=== PATIENT | male | born 1935 | race Caucasian/White ===

== ENCOUNTER 2017-07-02 09:50 | Inpatient (IN) | payer MEDICARE, MEDICAID ==
[~2017-07-02] VITALS: Ht 165.1 cm; Wt 68.1 kg
[2017-07-02] MEDS ORDERED: SODIUM CHLORIDE 0.9% 1,000 ML IV ONE (10:08)
[2017-07-02 10:42] LABS: BASOPHILS % 0.6 % (0.0-2.0); EOSINOPHILS % 0.7 % (0.0-5.0); HEMATOCRIT. 42.9 % (42.0-52.0); HEMOGLOBIN. 14.3 g/dL (14.0-18.0); LYMPHOCYTES % 28.7 % (20.0-50.0); MEAN CORPUSCULAR HEMOGLOBIN 31.1 pg (28.0-32.0); MEAN PLATELET VOLUME 9.4 fl (7.4-10.4); MONOCYTES % 12.3 % (2.0-8.0); NEUTROPHILS % 57.7 % (40.0-76.0); PLATELET 161 x1000/uL (130-400); RED BLOOD CELL COUNT 4.61 mill/uL (4.7-6.1); RED CELL DISTRIBUTION WIDTH 13.4 % (11.6-14.6)
[2017-07-02 10:51] LABS: PROTHROMBIN TIME 10.6 sec (9.4-11.6)
[2017-07-02] MEDS ORDERED: SODIUM CHLORIDE 0.9% 1,000 ML IV SCH (10:53)
[2017-07-02 10:56] LABS: CARBON DIOXIDE 32 mEq/L (21-32); CHLORIDE 102 mEq/L (98-107)
[2017-07-02 11:00] LABS: TROPONIN I < 0.02 ng/mL (0.00-0.04)
[2017-07-02 11:01] LABS: AMMONIA 14 uMol/L (<32)
[2017-07-02 11:33] LABS: CLARITY URINE CLEAR (CLEAR); COLOR URINE YELLOW (YELLOW); GLUCOSE URINE NEGATIVE (NEGATIVE); KETONES URINE NEGATIVE (NEGATIVE); LEUKOCYTE ESTERASE URINE NEGATIVE (NEGATIVE); NITRITE URINE NEGATIVE (NEGATIVE); OCCULT BLOOD URINE NEGATIVE (NEGATIVE); PH URINE 8.5 (4.5-8.0); PROTEIN URINE NEGATIVE (NEGATIVE); SPECIFIC GRAVITY URINE 1.016 (1.005-1.030); UROBILINOGEN URINE 0.2 E.U./dL (0.2-1.0)
[2017-07-02] MEDS ORDERED: IPRATROPIUM/ALBUTEROL 0.5-3(2.5)MG/3ML NEB INH PRN (12:15)
[2017-07-02] MEDS ORDERED: CLONIDINE 0.1MG TABLET PO PRN (12:15)
[2017-07-02] MEDS ORDERED: NITROGLYCERIN 0.4MG TABLET SL SL PRN (12:15)
[2017-07-02] MEDS ORDERED: ONDANSETRON HCL 4MG/2ML VIAL IV PRN (12:15)
[2017-07-02] MEDS ORDERED: NA PHOS,M-B/NA PHOS,DI-BA ENEMA 118ML PR PRN (12:15)
[2017-07-02] MEDS ORDERED: ACETAMINOPHEN 325MG TABLET PO PRN (12:15)
[2017-07-02] MEDS ORDERED: DOCUSATE SODIUM 100MG CAPSULE PO PRN (12:15)
[2017-07-02] MEDS ORDERED: GUAIFENESIN 200MG/10ML SUGAR FREE UDC PO PRN (12:15)
[2017-07-02] MEDS ORDERED: MAGNESIUM/ALUMINUM HYDROXIDE/SIMETHICONE 30ML UDC PO PRN (12:15)
[2017-07-02 14:28] LABS: CREATINE KINASE 113 IU/L (39-308); CREATINE KINASE MB FRACTION 2.7 ng/mL (0.5-3.6); TROPONIN I < 0.02 ng/mL (0.00-0.04)
[2017-07-02] MEDS ORDERED: ASPIRIN 300MG SUPP PR SCH (15:30)
[2017-07-02] MEDS: DEXT 5%/0.45% NACL 1000ML 1,000 ML IV SCH (15:56)
[2017-07-02 20:15] VITALS: BP 129/70
[2017-07-02 20:32] VITALS: BP 129/70
[2017-07-02] MEDS: ATORVASTATIN CALCIUM 20MG TABLET PO SCH (21:00)
[2017-07-02] MEDS ORDERED: PRIM250T33 PO (21:50)
[2017-07-02] MEDS: FAMOTIDINE 20MG/2ML VIAL IV SCH (22:01)
[2017-07-02] MEDS: ENOXAPARIN 40MG/0.4ML SYR SUBCUT SCH (22:02)
[2017-07-02 23:39] LABS: CREATINE KINASE 112 IU/L (39-308); CREATINE KINASE MB FRACTION 2.5 ng/mL (0.5-3.6); TROPONIN I < 0.02 ng/mL (0.00-0.04)
[2017-07-03] VITALS (7 sets, daily range): BP systolic 115–146; BP diastolic 72–82
[2017-07-03] MEDS: DEXT 5%/0.45% NACL 1000ML 1,000 ML IV SCH ×4 (01:27→21:06)
[2017-07-03] MEDS: FAMOTIDINE 20MG/2ML VIAL IV SCH ×2 (08:12→21:07)
[2017-07-03] MEDS ORDERED: ASPIRIN 325MG EC TABLET PO SCH (09:00)
[2017-07-03] MEDS: CLOPIDOGREL 75MG TABLET PO SCH (09:00)
[2017-07-03] MEDS: LORAZEPAM 2MG/ML CPJ IV PRN (10:44)
[2017-07-03 13:55] LABS: T4 FREE 1.15 ng/dL (0.76-1.46)
[2017-07-03 14:10] LABS: FOLIC ACID (FOLATE) SERUM 10.1 ng/mL (>5.38)
[2017-07-03] MEDS: ENOXAPARIN 40MG/0.4ML SYR SUBCUT SCH (18:34)
[2017-07-03] MEDS: ATORVASTATIN CALCIUM 20MG TABLET PO SCH (21:07)
[2017-07-03] MEDS: DIPHENHYDRAMINE 50MG/ML VIAL IV PRN (21:12)
[2017-07-04 04:00] VITALS: BP 95/65
[2017-07-04] MEDS: DEXT 5%/0.45% NACL 1000ML 1,000 ML IV SCH ×2 (05:45→17:45)
[2017-07-04 08:00] VITALS: BP 130/71
[2017-07-04] MEDS: CLOPIDOGREL 75MG TABLET PO SCH (09:39)
[2017-07-04] MEDS: FAMOTIDINE 20MG/2ML VIAL IV SCH ×2 (09:44→20:45)
[2017-07-04 12:00] VITALS: BP 123/67
[2017-07-04 16:00] VITALS: BP 114/75
[2017-07-04] MEDS: ENOXAPARIN 40MG/0.4ML SYR SUBCUT SCH (17:45)
[2017-07-04] MEDS: LORAZEPAM 2MG/ML CPJ IV PRN (18:05)
[2017-07-04 20:00] VITALS: BP 125/63
[2017-07-04] MEDS: ATORVASTATIN CALCIUM 20MG TABLET PO SCH (20:45)
[2017-07-04] MEDS: DIPHENHYDRAMINE 50MG/ML VIAL IV PRN (21:03)
[2017-07-05 00:04] VITALS: BP 117/75
[2017-07-05] MEDS: DEXT 5%/0.45% NACL 1000ML 1,000 ML IV SCH ×2 (03:09→17:00)
[2017-07-05 04:00] VITALS: BP 131/67
[2017-07-05 08:00] VITALS: BP 129/81
[2017-07-05] MEDS: CLOPIDOGREL 75MG TABLET PO SCH (09:29)
[2017-07-05] MEDS: FAMOTIDINE 20MG/2ML VIAL IV SCH ×2 (09:51→20:20)
[2017-07-05 12:00] VITALS: BP 116/60
[2017-07-05 16:00] VITALS: BP 125/56
[2017-07-05] MEDS: ENOXAPARIN 40MG/0.4ML SYR SUBCUT SCH (18:10)
[2017-07-05 20:00] VITALS: BP 161/82
[2017-07-05] MEDS: ATORVASTATIN CALCIUM 20MG TABLET PO SCH (20:20)
[2017-07-06] VITALS: BP 118/94
[2017-07-06] MEDS: DIPHENHYDRAMINE 50MG/ML VIAL IV PRN (00:45)
[2017-07-06] MEDS: DEXT 5%/0.45% NACL 1000ML 1,000 ML IV SCH (03:10)
[2017-07-06 04:00] VITALS: BP 136/74
[2017-07-06 08:00] VITALS: BP 126/65
[2017-07-06] MEDS ORDERED: CYANOCOBALAMIN 1000MCG/ML VIAL IM SCH (09:00)
[2017-07-06] MEDS: CLOPIDOGREL 75MG TABLET PO SCH (09:34)
[2017-07-06] MEDS: FAMOTIDINE 20MG/2ML VIAL IV SCH (09:38)
[2017-07-06 12:00] VITALS: BP 129/60
[2017-07-06 13:12] VITALS: BP 129/60
== END 2017-07-06 12:20 | DRG 64 ==
LOC: ER 09:59 → 7WST 10:55 → EDBEDREQTM 10:56 → EDBEDREQ 10:56 → SUPCPDRO 12:05 → ENRESERV 19:03 → EDBEDREQ 20:21
PROVIDERS: ADMIT Internal Medicine; ATTEND Internal Medicine
DX: I63.9 Cerebral infarction, unspecified (principal); G82.50 Quadriplegia, unspecified; G93.40 Encephalopathy, unspecified; G30.9 Alzheimer's disease, unspecified; F02.80 Dementia in other diseases classified elsewhere, unspecified severity, without behavioral disturbance, psychotic disturbance, mood disturbance, and anxiety; E78.00 Pure hypercholesterolemia, unspecified; I10 Essential (primary) hypertension; R13.10 Dysphagia, unspecified; R47.01 Aphasia; R26.9 Unspecified abnormalities of gait and mobility; R53.81 Other malaise
CPT/HCPCS: 36415; 51702; 70450; 70544; 70551; 71010; 80053; 80061; 81003; 82140; 82550; 82553; 82607; 82746; 82962; 83036; 83605; 83690; 83880; 84439; 84443; 84481; 84484; 85025; 85610; 85730; 87040; 87086; 92610; 93005; 93306; 93880; 93970; 97116; 97162; 97167; 99285; A6261; J1200; J1650; J2060; J3420; J3490; J7030; A4315

== ENCOUNTER 2017-07-06 12:50 | Inpatient (IN) | payer MEDICARE, MEDICAID ==
[~2017-07-06] VITALS: Ht 165.1 cm; Wt 64.0 kg
[2017-07-06 12:50] VITALS: BP 133/72
[~2017-07-06 12:50] MED LIST: PRIM250T33 PO
[2017-07-06] MEDS ORDERED: ACETAMINOPHEN 650MG/20.3ML UDC PO PRN (14:15)
[2017-07-06] MEDS ORDERED: IPRATROPIUM/ALBUTEROL 0.5-3(2.5)MG/3ML NEB HHN PRN (14:15)
[2017-07-06] MEDS ORDERED: DOCUSATE SODIUM 100MG CAPSULE PO PRN (14:15)
[2017-07-06] MEDS ORDERED: ONDANSETRON HCL 4MG TABLET PO PRN (14:15)
[2017-07-06] MEDS ORDERED: NA PHOS,M-B/NA PHOS,DI-BA ENEMA 118ML PR PRN (14:15)
[2017-07-06] MEDS ORDERED: GUAIFENESIN 200MG/10ML SUGAR FREE UDC PO PRN (14:15)
[2017-07-06] MEDS ORDERED: CLONIDINE 0.1MG TABLET PO PRN (14:15)
[2017-07-06] MEDS ORDERED: MAGNESIUM/ALUMINUM HYDROXIDE/SIMETHICONE 30ML UDC PO PRN (14:15)
[2017-07-06] MEDS ORDERED: NITROGLYCERIN 0.4MG TABLET SL SL PRN (14:15)
[2017-07-06] MEDS ORDERED: TRAMADOL 50MG TABLET PO PRN (18:45)
[2017-07-06 20:00] VITALS: BP 141/76
[2017-07-06] MEDS: ATORVASTATIN CALCIUM 20MG TABLET PO SCH (20:27)
[2017-07-06] MEDS: FAMOTIDINE 20MG TABLET PO SCH (20:27)
[2017-07-07 06:24] LABS: HEMATOCRIT. 40.9 % (42.0-52.0); HEMOGLOBIN. 13.9 g/dL (14.0-18.0); MEAN CORPUSCULAR HEMOGLOBIN 31.2 pg (28.0-32.0); MEAN PLATELET VOLUME 9.5 fl (7.4-10.4); PLATELET 151 x1000/uL (130-400); RED BLOOD CELL COUNT 4.44 mill/uL (4.7-6.1); RED CELL DISTRIBUTION WIDTH 13.4 % (11.6-14.6)
[2017-07-07 06:29] LABS: CARBON DIOXIDE 27 mEq/L (21-32); CHLORIDE 103 mEq/L (98-107)
[2017-07-07 06:33] LABS: PREALBUMIN 13.5 mg/dL (20.0-40.0)
[2017-07-07 08:00] VITALS: BP 130/77
[2017-07-07] MEDS: CYANOCOBALAMIN 1000MCG/ML VIAL IM SCH (09:40)
[2017-07-07] MEDS: CLOPIDOGREL 75MG TABLET PO SCH (09:40)
[2017-07-07] MEDS: FAMOTIDINE 20MG TABLET PO SCH (09:40)
[2017-07-07] MEDS: ENOXAPARIN 40MG/0.4ML SYR SUBCUT SCH (09:40)
[2017-07-07 13:59] LABS: PLATELET ESTIMATE NORMAL
[2017-07-07 20:00] VITALS: BP 127/81
[2017-07-07] MEDS: ATORVASTATIN CALCIUM 20MG TABLET PO SCH (21:12)
[2017-07-08 08:00] VITALS: BP 113/62
[2017-07-08] MEDS: CLOPIDOGREL 75MG TABLET PO SCH (09:29)
[2017-07-08] MEDS: FAMOTIDINE 20MG TABLET PO SCH (09:29)
[2017-07-08] MEDS: CYANOCOBALAMIN 1000MCG/ML VIAL IM SCH (09:29)
[2017-07-08] MEDS: ENOXAPARIN 40MG/0.4ML SYR SUBCUT SCH (09:30)
[2017-07-08 20:00] VITALS: BP 156/77
[2017-07-08] MEDS: ATORVASTATIN CALCIUM 20MG TABLET PO SCH (20:38)
[2017-07-09 08:00] VITALS: BP 112/48
[2017-07-09] MEDS: CLOPIDOGREL 75MG TABLET PO SCH (10:10)
[2017-07-09] MEDS: CYANOCOBALAMIN 1000MCG/ML VIAL IM SCH (10:10)
[2017-07-09] MEDS: FAMOTIDINE 20MG TABLET PO SCH (10:10)
[2017-07-09] MEDS: ENOXAPARIN 40MG/0.4ML SYR SUBCUT SCH (10:17)
[2017-07-09 20:00] VITALS: BP 112/61
[2017-07-09] MEDS: ATORVASTATIN CALCIUM 20MG TABLET PO SCH (21:52)
[2017-07-10 07:07] LABS: HEMOGLOBIN. 13.9 g/dL (14.0-18.0); MEAN CORPUSCULAR HEMOGLOBIN 31.6 pg (28.0-32.0); MEAN CORPUSCULAR VOLUME 93.1 fL (80.0-94.0); MEAN PLATELET VOLUME 9.2 fl (7.4-10.4); PLATELET 191 x1000/uL (130-400); RED CELL DISTRIBUTION WIDTH 13.1 % (11.6-14.6)
[2017-07-10 07:18] LABS: FERRITIN 474 ng/mL (22-322)
[2017-07-10 07:25] LABS: CARBON DIOXIDE 29 mEq/L (21-32); CHLORIDE 101 mEq/L (98-107); HDL CHOLESTEROL 41 mg/dL (40-59); LDL CHOLESTEROL 94 mg/dL (5-100); PHOSPHORUS 2.8 mg/dL (2.5-4.9); TOTAL IRON BINDING CAPACITY 204 ug/dL (250-450)
[2017-07-10 07:36] LABS: PROSTRATE SPECIFIC AG TOTAL 24.13 ng/mL (0.0-4.0)
[2017-07-10 08:00] VITALS: BP 114/69
[2017-07-10 08:25] LABS: VITAMIN B12 SERUM > 2000.0 pg/mL (211-911)
[2017-07-10] MEDS: CYANOCOBALAMIN 1000MCG/ML VIAL IM SCH (08:52)
[2017-07-10] MEDS: FAMOTIDINE 20MG TABLET PO SCH (08:52)
[2017-07-10] MEDS: CLOPIDOGREL 75MG TABLET PO SCH (08:52)
[2017-07-10] MEDS: ENOXAPARIN 40MG/0.4ML SYR SUBCUT SCH (08:53)
[2017-07-10] MEDS ORDERED: ZOLPIDEM TARTRATE 5MG TABLET PO PRN (18:30)
[2017-07-10 19:19] LABS: CLARITY URINE CLEAR (CLEAR); COLOR URINE YELLOW (YELLOW); GLUCOSE URINE NEGATIVE (NEGATIVE); KETONES URINE NEGATIVE (NEGATIVE); LEUKOCYTE ESTERASE URINE NEGATIVE (NEGATIVE); NITRITE URINE NEGATIVE (NEGATIVE); OCCULT BLOOD URINE TRACE (NEGATIVE); PH URINE 5.5 (4.5-8.0); PROTEIN URINE NEGATIVE (NEGATIVE); SPECIFIC GRAVITY URINE 1.012 (1.005-1.030)
[2017-07-10 20:00] VITALS: BP 129/75
[2017-07-10] MEDS: ATORVASTATIN CALCIUM 20MG TABLET PO SCH (20:47)
[2017-07-10 22:18] LABS: PLATELET ESTIMATE NORMAL
[2017-07-11 08:00] VITALS: BP 120/67
[2017-07-11] MEDS: CYANOCOBALAMIN 1000MCG/ML VIAL IM SCH (08:06)
[2017-07-11] MEDS: FAMOTIDINE 20MG TABLET PO SCH (08:07)
[2017-07-11] MEDS: CLOPIDOGREL 75MG TABLET PO SCH (08:07)
[2017-07-11] MEDS: ENOXAPARIN 40MG/0.4ML SYR SUBCUT SCH (08:08)
[2017-07-11 15:22] VITALS: BP 120/67
[2017-07-13 09:07] LABS: 25-HYDROXY VITAMIN D3 19 ng/mL (.)
== END 2017-07-11 15:47 | disposition home health service (06) | DRG 64 ==
PROVIDERS: ADMIT Physical Medicine & Rehabilitation Spinal Cord Injury Medicine; ATTEND Internal Medicine
DX: I63.9 Cerebral infarction, unspecified (principal); G82.50 Quadriplegia, unspecified; E44.0 Moderate protein-calorie malnutrition; G30.9 Alzheimer's disease, unspecified; F02.80 Dementia in other diseases classified elsewhere, unspecified severity, without behavioral disturbance, psychotic disturbance, mood disturbance, and anxiety; G81.91 Hemiplegia, unspecified affecting right dominant side; R47.01 Aphasia; R13.10 Dysphagia, unspecified; D63.8 Anemia in other chronic diseases classified elsewhere; E78.00 Pure hypercholesterolemia, unspecified; I10 Essential (primary) hypertension; R53.81 Other malaise; R47.1 Dysarthria and anarthria; R26.2 Difficulty in walking, not elsewhere classified; Z68.23 Body mass index [BMI] 23.0-23.9, adult; Z79.02 Long term (current) use of antithrombotics/antiplatelets; Z98.49 Cataract extraction status, unspecified eye; Z79.899 Other long term (current) drug therapy
CPT/HCPCS: 36415; 80048; 80053; 80061; 81001; 82306; 82607; 82728; 82746; 83036; 83540; 83550; 83735; 84100; 84134; 84153; 84443; 84630; 85025; 87077; 87086; 87186; 92523; 92610; 93970; 97116; 97163; 97167; 97530; 97535; J1650; J3420